=== PATIENT | male | born 1975 | race Caucasian/White ===

== ENCOUNTER → 2017-10-14 07:11 | Outpatient (CLI) | payer BC, SELFPAY ==
--- NOTE | 2017-10-14 07:22 | MRI_ITS ---
STUDY: MRI RIGHT ANKLE WITHOUT CONTRAST REASON FOR EXAM: Right ankle pain, Achilles tendinitis, calcaneal spur. TECHNIQUE: Standardized fat and water weighted pulse sequences were obtained in all 3 orthogonal planes. COMPARISON: None. FINDINGS: Normal subcutis adipose space. There is a small ganglion cyst dorsal to the second tarsometatarsal joint (inversion recovery sagittal images 14, 15) measuring 0.5 cm in length. Normal posterior tibialis tendon. Normal flexor digitorum longus tendon. Normal flexor hallucis longus tendon. Normal peroneus longus and brevis tendons. Normal tibialis anterior tendon. Normal extensor hallucis longus tendon. Normal extensor digitorum longus tendons. There is chronic insertional Achilles tendinosis with mild increased intrasubstance signal (inversion recovery sagittal image 9), a small intratendinous ossification (T1 sagittal image 9) and mild reactive bone edema of the posterior tuberosity of the calcaneus at the Achilles tendon insertion (inversion recovery sagittal images 8-12). There is no discrete Achilles tendon tear. There is minimal fluid in the retrocalcaneal bursa. There is a small posterior calcaneal enthesophyte. There is mild edema in the calcaneal origin of the central cord of the plantar fascia (inversion recovery sagittal image 14). There is a plantar calcaneal enthesophyte. Normal intrinsic muscles of the rearfoot. Normal distal tibiofibular syndesmotic ligamentous complex. Normal lateral ligamentous complex. Normal subtalar ligaments and sinus tarsi. Normal deltoid ligamentous complexes. Normal plantar calcaneonavicular (spring) ligament. Normal tibiotalar articulation. Normal talar dome. There is mild posterior subtalar arthrosis with small marginal osteophytes and mild chondral thinning at the posterior aspect of the articulation (T1 sagittal images 10, 11). Normal talonavicular articulation. Normal calcaneocuboid articulation. Normal navicular-cuneiform articulations. There is mild arthrosis of the second tarsometatarsal joint with mild chondral thinning and subchondral cystic change of the second metatarsal base (inversion recovery sagittal image 14). There is a small subchondral cyst of the fifth metatarsal base. 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 Mild plantar fasciitis. Mild posterior subtalar arthrosis. Mild second tarsometatarsal arthrosis. Small ganglion cyst dorsal to the second tarsometatarsal joint. Electronically Signed: Cory Ramirez MD at 13:25 EDT Tel , Service support ,
== END ==
PROVIDERS: Family Provider Internal Medicine; PCP Internal Medicine; Visit Provider Podiatrist
DX: M76.61 Achilles tendinitis, right leg (principal); M77.31 Calcaneal spur, right foot; M25.571 Pain in right ankle and joints of right foot
CPT/HCPCS: 73721

== ENCOUNTER 2023-05-18 13:14 | Day surgery (SDC) | payer OTHER, SELFPAY ==
[2023-05-18] VITALS (7 sets, daily range): BP systolic 95–137; BP diastolic 62–92; PULSE 66–75; RESP 16; TEMP 36.5–37.3; O2SAT 94–97; BMI 43.9
[2023-05-18] MEDS: Lactated Ringers 1,000 ML 15 ML IV (13:35)
--- NOTE | 2023-05-18 14:09 | H&P.OPEN ---
HPI - General HPI Narrative BRIGID MERCHANT, is a 47 M who presents for screening colonoscopy. Patient has never had a colonoscopy in the past. He denies any abdominal pain or blood in the stool. He has no family history of colon cancer. PFSH Medical History (Updated 05/13/23 @ 12:40 by Viviane Bernard) Alcohol use Arthritis Back pain CPAP (continuous positive airway pressure) dependence Gout History of steroid therapy Non-smoker Sleep apnea Wears glasses Home Medications allopurinol 300 mg tablet 300 mg PO PRN 05/13/23 [History Last Taken Unknown] meloxicam 15 mg tablet 15 mg PO DAILY 05/13/23 [History Last Taken Unknown] Allergy/AdvReac Type Severity Reaction Status Date / Time No Known Allergies Allergy Verified 05/18/23 13:28 Family History Mother Hypertension Surgical History (Updated 05/13/23 @ 12:40 by Viviane Bernard) h/o left ankle surgery H/O wisdom tooth extraction Social History (Updated 05/13/23 @ 11:41 by Angie Fong) household members: spouse current occupational status: employed Smoking Status: Former smoker alcohol intake: current Past Medical/Surgical History Planned Operation Planned Operative Procedure/s: COLONOSCOPY-OA Previous Hospitalizations/Surgeries HX Hospitalizations: No Any Problems With Anesthesia: No You/Your Family Experience Fever (Hyperthermia) With Anes: No Cholinesterase deficiency: No Cardiovascular Hx Hypertension: No Respiratory Hx Sleep Apnea: No Hx Respiratory Tract Infection/Cold (presently): No Do You Snore Loudly (louder than talking or can be heard): Yes Do You Often Feel Tired/ Fatigued/ Sleepy Dring Daytime?: No Has Anyone Observed You Stop Breathing During Sleep?: No Result (for STOP score): Negative Smoking Status: Former smoker Neurological Does patient have nerve stimulator: No Miscellaneous Recent Exposure to Contagious Disease: No Allergies No Known Allergies Allergy (Verified 05/18/23 13:28) Discharge Is Pt Admitted From a [facility], or a [facility]: No After D/C, Where Do you Plan to Go: Return Home Vital Signs Vital Signs Vital Signs: 05/18/23 13:28 05/18/23 13:28 Temperature 97.7 F L Temperature Source Temporal Pulse Rate 73 Respiratory Rate 16 Respiratory Pattern Normal Blood Pressure 137/92 H Blood Pressure Mean 107 Blood Pressure Source Monitor Blood Pressure Position Semi-Fowlers Blood Pressure Location Right Arm Pulse Ox 97 Oxygen Delivery Method Room Air Weight Weight: 341 lb 11.464 oz Body Mass Index (BMI) 43.9 Physical Exam Const alert and oriented x3 HEENT normocephalic Eyes PERRL Resp normal respiratory effort and normal air movement Cardio regular rate and regular rhythm GI soft to palpation, non-tender and non-distended Extremity normal to inspection Assessment & Plan Assessment/Plan (1) Encounter for screening for malignant neoplasm of colon: PLAN: I explained endoscopy in detail to the patient. I explained the risks including but not limited to stroke or heart attack with anesthesia, perforation of the GI tract, bleeding, infection. I explained that any of these could necessitate further emergency surgery. The patient understands and all questions were answered sufficiently. The patient wishes to proceed with procedure. Angelo Morrison MD Pager: [facility] [address] [place] [address] [address] [place] [address] Office: Surgery Risks - Colonoscopy Risks Include but are not Limited To: Risks include but are not limited to: Bleeding, perforation requiring further surgery, inability to complete colonoscopy requiring barium enema.
--- NOTE | 2023-05-18 14:15 | COLBX_PTH ---
PATIENT: BRIGID MERCHANT LOC: [facility]#:[id number] AGE/SX: 47/M ROOM: RE05/18/[address]: Dr. Angelo Morrison MD : 1975 BED: DIS: 05/18/2023 SPEC #: [id number] RECD: 05/18/23 16:59 STATUS: SHAI MCGEE #: [id number] BABITA: 05/18/23 14:[address]: Angelo Morrison DEPT: SURGICAL PATHOLOGY RECD BY: Inez Harding ENTERED: 05/19/23 08:01 SP TYPE: COLON BX OTHR DR: Dr. Lux Emery MD Tissues: Rectum, NOS Procedures: Surgery Specimen Level IV HEADER OPERATION: Colonoscopy - open access with polypectomy PRE-OP DIAGNOSIS: Screening TISSUE SUBMITTED: Rectal polyp MICROSCOPIC DIAGNOSIS Rectal polyp, polypectomy: A fragment of colonic mucosa with marked cautery artifacts. See comment. COMMENT Correlation with clinical, endoscopic findings and appropriate follow up are necessary. MICROSCOPIC DESCRIPTION Slides are reviewed. GROSS DESCRIPTION Received is one container labeled with the patient name and designated rectal polyp. The specimen consists of one irregular fragment of light [place] soft tissue that measures 0.3 x 0.3 x 0.1 cm. The specimen is totally submitted in one cassette. /SJ:cc 05/19/23 TC:5 [facility]: [id number]
--- NOTE | 2023-05-18 14:47 | OP.CCLET_ITS ---
05/18/2023 Lux Emery MD Re : Colonoscopy procedure for Jong Miguel Dear Dr. Emery This procedure was performed on Thursday, May 18, 2023. My impressions and recommendations are as follows: Impressions : - The entire examined colon is normal on direct and retroflexion views. - No specimens collected. Recommendations : - Discharge patient to home. - Resume previous diet. - Continue present medications. - Await pathology results. - Repeat colonoscopy in 5 years for surveillance based on pathology results. My findings are described in the full procedure note, which is enclosed. If I can be of further assistance, please feel free to contact me at Doctor phone number(s): , Work: . Sincerely, Angelo Morrison MD 05/18/2023 2:46:57 PM This report has been signed electronically.
--- NOTE | 2023-05-18 14:47 | OP.COLON_ITS ---
Patient Name: Jong Miguel Procedure Date: 05/18/2023 2:17 PM Date of : 1975 Age: 47 Procedure: Colonoscopy Indications: Screening for colorectal malignant neoplasm Providers: Angelo Morrison MD Medicines: Monitored Anesthesia Care Patient Profile: This is a 47 year old male. Refer to note in patient chart for documentation of history and physical. Last Colonoscopy: none. The patient's first colonoscopy is today. Complications: No immediate complications. Procedure: Pre-Anesthesia Assessment: - Prior to the procedure, a History and Physical was performed, and patient medications and allergies were reviewed. The patient's tolerance of previous anesthesia was also reviewed. The risks and benefits of the procedure and the sedation options and risks were discussed with the patient. All questions were answered, and informed consent was obtained. Prior Anticoagulants: The patient has taken no anticoagulant or antiplatelet agents. After reviewing the risks and benefits, the patient was deemed in satisfactory condition to undergo the procedure. After I obtained informed consent, the scope was passed under direct vision. Throughout the procedure, the patient's blood pressure, pulse, and oxygen saturations were monitored continuously. The pediatric colonoscope was introduced through the anus and advanced to the cecum, identified by appendiceal orifice and ileocecal valve. The colonoscopy was performed without difficulty. The patient tolerated the procedure well. The quality of the bowel preparation was good. The ileocecal valve, appendiceal orifice, and rectum were photographed. Scope In: 2:23:19 PM Scope Withdrawal Time 0 hours 7 minutes 12 seconds Scope Out: 2:44:00 PM Total Procedure Duration Time 0 hours 20 minutes 41 seconds Findings: The entire examined colon appeared normal on direct and retroflexion views. A small polyp was found in the rectum. The polyp was removed with a hot snare. Resection and retrieval were complete. Impression: - The entire examined colon is normal on direct and retroflexion views. - No specimens collected. Recommendation: - Discharge patient to home. - Resume previous diet. - Continue present medications. - Await pathology results. - Repeat colonoscopy in 5 years for surveillance based on pathology results. Procedure Code(s): --- Professional --- 84104, Colonoscopy, flexible; with removal of tumor(s), polyp(s), or other lesion(s) by snare technique Diagnosis Code(s): --- Professional --- Z12.11, Encounter for screening for malignant neoplasm of colon CPT copyright 2021 [employer]. All rights reserved. The codes documented in this report are preliminary and upon layout man review may be revised to meet current compliance requirements. Angelo Morrison MD 05/18/2023 2:46:57 PM This report has been signed electronically. Number of Addenda: 0 Note Initiated On: 05/18/2023 2:17 PM
== END 2023-05-18 15:37 | disposition home or self-care (01) ==
LOC: EN 13:16 → AC 13:17
PROVIDERS: PCP Family Medicine; Referring Provider Family Medicine; Visit Provider Surgery
PROC: 0DJD8ZZ Inspection of Lower Intestinal Tract, Via Natural or Artificial Opening Endoscopic (ICD-10-PCS; CPT 45378; principal; 2023-05-18 14:10)
DX: Z12.11 Encounter for screening for malignant neoplasm of colon (principal); Z87.891 Personal history of nicotine dependence; K62.1 Rectal polyp; K21.9 Gastro-esophageal reflux disease without esophagitis
CPT/HCPCS: 45385; 88305; J7120; J2405